=== PATIENT | male | born 1990 | race Caucasian/White ===

== ENCOUNTER 2021-06-12 09:02 | Emergency (ER) | payer OTHER ==
[~2021-06-12 09:02] MED LIST: CYCLOBENZAPRINE10 MG PO; NAPROXEN500 MG PO; PREDNISONE20 MG PO
[2021-06-12 11:09] LABS: BASOPHIL 0.2 % (0-2); EOSINOPHIL 0 % (0-5); HCT 43.6 % (42.0-52.0); HGB 14.5 g/dl (13.2-18.0); LYMPHOCYTE 4.1 % (15-48); MCH 28.7 pg (25.0-31.0); MCHC 33.3 g/dL (32.0-36.0); MCV 86.2 fL (78.0-100.0); MONOCYTE 2.1 % (0-12); MPV 10.4 fL (6.0-9.5); NEUTROPHIL 91.5 % (41-80); NRBC 0.2; PLT 226 K/uL (150-400); RBC 5.06 M/uL (4.70-6.00)
[2021-06-12 11:14] LABS: BILIRUBIN NEGATIVE (NEGATIVE); BLOOD 1+ Ery/uL (NEGATIVE); CLARITY CLEAR (CLEAR); COLOR YELLOW (YELLOW); GLUCOSE (U) NORMAL (NORMAL); LEUKOCYTES NEGATIVE Leu/uL (NEGATIVE); NITRITE NEGATIVE (NEGATIVE); PROTEIN 1+ mg/dL (NEGATIVE); SPECIFIC GRAVITY 1.015 (1.001-1.030); UROBILINOGEN 0.2 mg/dL (0.2-1.0)
[2021-06-12 11:46] LABS: BACTERIA TRACE; SQUAMOUS EPITHELIAL CELLS RARE; URINARY WBC RARE
[2021-06-12 11:53] LABS: ALBUMIN 2.5 g/dL (3.4-5.0); BILIRUBIN - TOTAL 0.7 mg/dL (0.2-1.0); BUN/CREAT RATIO (CALC) 19.3 RATIO; CREATININE 0.83 mg/dL (0.67-1.17); GLOBULIN (CALCULATION) 3.9 g/dL; MAGNESIUM 1.8 mg/dL (1.8-2.4); POTASSIUM 3.4 mmol/L (3.5-5.1); TOTAL PROTEIN 6.4 g/dL (6.4-8.2)
[2021-06-12 12:00] LABS: LACTIC ACID 3.3 mmol/L (0.4-1.9)
== END 2021-06-12 10:45 | disposition other institution (70) ==
LOC: FER 09:02
PROVIDERS: Emergency Medicine
DX: U07.1 COVID-19 (principal); J96.90 Respiratory failure, unspecified, unspecified whether with hypoxia or hypercapnia
CPT/HCPCS: 36415; 36600; 71045; 71275; 80053; 81001; 82803; 83605; 83735; 83880; 84484; 85025; 87040; 87088; 92950; 93005; 96365; 96375; J2704; J7030; J7050; Q9967; U0002